=== PATIENT | female | born 1965 | race Caucasian/White ===

== ENCOUNTER 2018-06-02 10:35 | Emergency (ER) | payer BC, OTHER ==
[2018-06-02] MEDS ORDERED: KETOROLAC 15 MG/1 ML SDV IVP ONE (11:11)
[2018-06-02] MEDS ORDERED: ACETAMINOPHEN 325 MG TAB PO ONE (11:14)
--- NOTE | 2018-06-02 11:14 | EDPHY ---
H & P Stated Complaint: sharp cp since last night/does have cough Time Seen by Provider: 06/02/18 11:01 HPI/ROS: CHIEF COMPLAINT: Chest pain, hemoptysis HISTORY OF PRESENT ILLNESS: 52-year-old female presents with chest pain and hemoptysis. Onset of runny nose and sore throat 3 days ago, associated with a moist cough. Streaks of blood in sputum starting last evening. Associated with chest pain with deep inspiration, low-grade fever and cough. The chest pain varies in location and is not localized to one area. No associated shortness of breath and no exertional chest pain. REVIEW OF SYSTEMS: complete 10 point ROS reviewed and is negative except for the noted elements in the HPI - Personal History LMP (Females 10-55): Post Menopausal Current Tetanus Diphtheria and Acellular Pertussis (TDAP): Yes - Medical/Surgical History Hx Asthma: No Hx Chronic Respiratory Disease: No Hx Diabetes: No Hx Cardiac Disease: No Hx Renal Disease: No Hx Cirrhosis: No Hx Alcoholism: No Hx HIV/AIDS: No Hx Splenectomy or Spleen Trauma: No Other PMH: denies - Social History Smoking Status: Current every day smoker Alcohol Use: Sober Additional Social History: - Physical Exam Exam: General Appearance: Alert, pleasant, well-appearing Eyes: Pupils equal and round, no conjunctival pallor or injection ENT, Mouth: Mucous membranes moist Neck: Normal inspection Respiratory: Lungs are clear to auscultation Cardiovascular: Regular rate and rhythm Gastrointestinal: Abdomen is soft and nontender Neurological: A&O, nonfocal, normal gait Skin: Warm and dry Extremities: Nontender, no pedal edema Psychiatric: Mood and affect normal Constitutional: Initial Vital Signs Temperature (C) 37.5 C 06/02/18 10:39 Heart Rate 75 06/02/18 10:39 Respiratory Rate 18 06/02/18 10:39 Blood Pressure 136/86 H 06/02/18 10:39 O2 Sat (%) 95 06/02/18 10:39 O2 Delivery Mode Room Air Allergies/Adverse Reactions: cefdinir Allergy (Verified 06/02/18 10:38) Home Medications: Medication Instructions Recorded Ranitidine HCl 75 mg PO 04/12/11 Venlafaxine Xr [Effexor Xr] 75 mg PO 04/12/11 Azithromycin [Zithromax] 250 mg PO DAILY #6 tab 06/02/18 Brio 06/02/18 Claritin 06/02/18 FOLIC ACID 06/02/18 Medical Decision Making - Diagnostics EKG Interpretation: EKG interpreted by me reveals normal sinus rhythm, rate 75, poor R-wave progression, no ST or T segment changes. Interpretation: Abnormal EKG Imaging Results: Imaging Impressions Chest X-Ray 06/02/18 11:01 Impression: 1. Airways disease with possibly a small superimposed infiltrate or scar at the left lung base. 2. Suspect an element of underlying interstitial lung disease. If there are any old outside chest x-rays, we would be happy to review them to assess for interval change. If not, noncontrast high-resolution chest CT might be helpful for characterization and quantification. Imaging: I viewed and interpreted images myself ED Course/Re-evaluation: This patient presents with cough and fever. Exam reveals left lower lobe rhonchi. Chest x-ray reveals a left lower lobe infiltrate, consistent with pneumonia. Prescription for Zithromax given. Warning signs discussed. Differential Diagnosis: Differential diagnosis includes though it is not limited to pneumonia, pneumothorax, pulmonary embolism, aortic dissection, pericarditis, acute coronary syndrome. - Data Points Laboratory Results: Laboratory Results 06/02/18 10:50 06/02/18 06/02/18 11:45 10:50 WBC 15.43 10^3/uL H 10^3/uL (3.80-9.50) RBC 4.90 10^6/uL 10^6/uL (4.18-5.33) Hgb 15.7 g/dL g/dL (12.6-16.3) Hct 45.2 % % (38.0-47.0) MCV 92.2 fL fL (81.5-99.8) MCH 32.0 pg pg (27.9-34.1) MCHC 34.7 g/dL g/dL (32.4-36.7) RDW 13.6 % % (11.5-15.2) Plt Count 306 10^3/uL 10^3/uL (150-400) MPV 9.8 fL fL (8.7-11.7) Neut % (Auto) 84.1 % H % (39.3-74.2) Lymph % (Auto) 7.4 % L % (15.0-45.0) [place] % (Auto) 7.0 % % (4.5-13.0) Eos % (Auto) 0.7 % % (0.6-7.6) Baso % (Auto) 0.5 % % (0.3-1.7) Nucleat RBC Rel Count 0.0 % % (0.0-0.2) Absolute Neuts (auto) 12.98 10^3/uL H 10^3/uL (1.70-6.50) Absolute Lymphs (auto) 1.14 10^3/uL 10^3/uL (1.00-3.00) Absolute Monos (auto) 1.08 10^3/uL H 10^3/uL (0.30-0.80) Absolute Eos (auto) 0.11 10^3/uL 10^3/uL (0.03-0.40) Absolute Basos (auto) 0.08 10^3/uL 10^3/uL (0.02-0.10) Absolute Nucleated RBC 0.00 10^3/uL 10^3/uL (0-0.01) Immature Gran % 0.3 % % (0.0-1.1) Immature Gran # 0.04 10^3/uL 10^3/uL (0.00-0.10) Nasal Influenza A PCR NEGATIVE FOR FLU A (NEGATIVE) Nasal Influenza B PCR NEGATIVE FOR FLU B (NEGATIVE) Medications Given: Discontinued Medications Acetaminophen (Tylenol) 650 mg PO EDNOW ONE Stop: 06/02/18 11:15 Last Admin: 06/02/18 11:20 Dose: 650 mg Ketorolac Tromethamine (Toradol) 15 mg IVP EDNOW ONE Stop: 06/02/18 11:12 Last Admin: 06/02/18 11:19 Dose: 15 mg Departure - Departure Disposition: Home, Routine, Self-Care Clinical Impression: Pneumonia Qualifiers: Pneumonia type: due to unspecified organism Laterality: left Lung location: lower lobe of lung Qualified Code(s): J18.1 - Lobar pneumonia, unspecified organism Condition: Good Instructions: Azithromycin (By mouth), Bacterial Pneumonia (ED) Additional Instructions: Drink plenty of fluids. Take Tylenol or ibuprofen as needed for fever and pain. Take antibiotics as prescribed. Return for worsening symptoms or any concerns. Referrals: Hattie Alcantara MD [[facility] Primary Care Provider] - 2-3 days, call for appt. Prescriptions: Azithromycin [Zithromax] 250 mg PO DAILY #6 tab
[2018-06-02] MEDS ORDERED: ACETAMINOPHEN 325 MG TAB ONE (11:17)
[2018-06-02 11:20] LABS: PLATELET COUNT 306 10^3/uL (150-400)
[2018-06-02 12:15] VITALS: BP 118/75
--- NOTE | 2018-06-02 14:28 | CPEKG ---
Test Reason : OPEN Blood Pressure : / mmHG Vent. Rate : 075 BPM Atrial Rate : 075 BPM P-R Int : 111 ms QRS Dur : 081 ms QT Int : 393 ms P-R-T Axes : 066 027 051 degrees QTc Int : 439 ms Sinus rhythm Probable left atrial enlargement poor R wave progression Confirmed by Lucina Steinberg ([id number]) on 06/02/2018 2:27:25 PM Referred By: Confirmed By:Lucina Steinberg
== END 2018-06-02 12:19 | disposition home or self-care (01) ==
DX: J18.1 Lobar pneumonia, unspecified organism (principal); R04.2 Hemoptysis; F17.200 Nicotine dependence, unspecified, uncomplicated; Z88.1 Allergy status to other antibiotic agents
CPT/HCPCS: 96374; J1885